=== PATIENT | female | born 1985 | race Caucasian/White ===

== ENCOUNTER 2022-10-26 11:08 | Outpatient (REF) | payer BC, SELFPAY ==
[2022-10-26 15:58] LABS: HCT 40.6 % (36.0-46.0); MCH 32.7 pg (27.0-33.0); MCHC 34.5 % (32.0-36.0); MCV 95 fL (80-95); MPV 11.9 fL (8.0-11.0); Platelet Count 370 10^3/uL (130-400); RBC 4.28 10^6/uL (3.93-5.22); RDW 12.4 % (11.7-14.6); RDW-SD 43.1 fL; WBC 7.23 10^3/uL (4.4-10.8)
[2022-10-26 17:38] LABS: Iron 68 ug/dL (50-170)
[2022-10-26 23:17] LABS: Estradiol 35 pg/mL (See Note); Progesterone 0.3 ng/mL (See Table)
[2022-10-27 09:57] LABS: FSH 8.8 mIU/mL (See Note); LH 6.9 mIU/mL (See Note)
[2022-10-27 10:38] LABS: TSH (W/Ref FT4) 1.05 uIU/mL (0.36-3.74)
== END 2022-10-26 11:09 | disposition home or self-care (01) ==
LOC: NCHCN 11:08
PROVIDERS: PCP Family Medicine; Visit Provider Family Medicine
DX: N92.0 Excessive and frequent menstruation with regular cycle (principal)
CPT/HCPCS: 85027; 82670; 83001; 83002; 83540; 84144; 84443

== ENCOUNTER 2023-04-03 13:22 | Outpatient (REF) | payer BC, SELFPAY ==
--- NOTE | 2023-04-03 14:30 | PAPFT_PTH ---
PATIENT: Liv Crow LOC: [facility]#:[id number] AGE/SX: 38/F ROOM: RE04/03/[address]: Neetu Colon : 1985 BED: DIS: 04/03/2023 SPEC #: [id number] RECD: 04/04/23 13:26 STATUS: TACOS REJamaal #: [id number] RITCHIE: 04/03/23 14:[address]: Neetu Colon DEPT: [facility] Cytology RECD BY: Micaela Morgan Tissues: 1 - CX/ENDOCX FOR PAP SMEARS Procedures: PAP THIN PREP/UVM Screening HPV DNA PROBE Comments: [id number]
== END 2023-04-03 13:23 | disposition home or self-care (01) ==
LOC: NCHCN 13:22
PROVIDERS: PCP Family Medicine; Visit Provider Family Medicine
DX: Z12.4 Encounter for screening for malignant neoplasm of cervix (principal); Z11.51 Encounter for screening for human papillomavirus (HPV); Z00.00 Encounter for general adult medical examination without abnormal findings
CPT/HCPCS: 88142; 87624

== ENCOUNTER 2024-04-10 10:36 | Outpatient (REF) | payer BC, SELFPAY ==
[2024-04-10 15:23] LABS: ALT 22 U/L (14-59); AST 18 U/L (15-37); Albumin 4.2 g/dL (3.4-5.0); Alkaline Phosphatase 63 U/L (46-116); Anion Gap 7.4 mmol/L (3-11); BUN 9 mg/dL (7-18); Bilirubin, Total 0.37 mg/dL (0.2-1.0); CO2 29.6 mmol/L (21.0-32.0); CREATININE 0.9 mg/dL (0.55-1.02); Calcium 9.7 mg/dL (8.5-10.1); Calculated LDL 105 mg/dL (<100); Chloride 108 mmol/L (98-107); Cholesterol 199 mg/dL (<200); Estimated GFR 82.88 (mL/min/1.73m2); Glucose 68 mg/dL (74-106); HDL Cholesterol 83 mg/dL (40-60); Potassium 5.2 mmol/L (3.5-5.1); Sodium 145 mmol/L (136-145); Triglyceride 56 mg/dL (<150)
== END 2024-04-10 10:37 | disposition home or self-care (01) ==
LOC: NCHCN 10:36
PROVIDERS: PCP Family Medicine; Visit Provider Family Medicine
DX: Z00.00 Encounter for general adult medical examination without abnormal findings (principal)
CPT/HCPCS: 80053; 80061

== ENCOUNTER 2024-07-19 15:15 | Outpatient (REF) | payer BC, SELFPAY ==
[2024-07-19 15:02] LABS: Abs Immature Grans 0.04 10^3/uL (0.0-0.06); Absolute Basophil Count 0.07 10^3/uL (0.0-0.2); Absolute Eosinophil Count 0.06 10^3/uL (0.0-0.7); Absolute Lymphocyte Count 1.43 10^3/uL (1.2-3.4); Absolute Neutrophil Count 4.35 10^3/uL (1.2-6.7); Basophils % 1.1 %; Eosinophils % 0.9 %; HCT 41.9 % (36.0-46.0); HGB 13.7 g/dL (11.2-15.7); Immature Grans % 0.6 %; Lymphocytes % 21.8 %; MCH 31.3 pg (27.0-33.0); MCHC 32.7 % (32.0-36.0); MCV 96 fL (80-95); Monocytes % 9.2 %; Neutrophils % 66.4 %; Platelet Count 330 10^3/uL (130-400); RBC 4.38 10^6/uL (3.93-5.22); RDW 12.3 % (11.7-14.6); RDW-SD 43.6 fL; WBC 6.55 10^3/uL (4.4-10.8)
[2024-07-19 15:44] LABS: ALT 18 U/L (14-59); AST 17 U/L (15-37); Albumin 4.2 g/dL (3.4-5.0); Alkaline Phosphatase 58 U/L (46-116); Anion Gap 6.6 mmol/L (3-11); BUN 12 mg/dL (7-18); Bilirubin, Total 0.37 mg/dL (0.2-1.0); CO2 29.4 mmol/L (21.0-32.0); CREATININE 0.9 mg/dL (0.55-1.02); Calcium 9.3 mg/dL (8.5-10.1); Chloride 105 mmol/L (98-107); Estimated GFR 82.88 (mL/min/1.73m2); Folate 17.2 ng/mL (8.6-20.0); Glucose 72 mg/dL (74-106); Potassium 4.6 mmol/L (3.5-5.1); Sodium 141 mmol/L (136-145); TSH 1.93 uIU/mL (0.36-3.74); Total Protein 6.9 g/dL (6.4-8.2); Vitamin B12 286 pg/mL (193-986)
== END 2024-07-19 15:16 | disposition home or self-care (01) ==
LOC: NCHCN 15:15
PROVIDERS: PCP Family Medicine; Visit Provider Family Medicine
DX: R41.0 Disorientation, unspecified (principal)
CPT/HCPCS: 80053; 82607; 82746; 84443; 85025

== ENCOUNTER 2024-08-21 02:15 | Outpatient (CLI) | payer BC, SELFPAY ==
[2024-08-21] MEDS: Gadoterate meglumine 20 ML VIAL 14 ML IVP (10:00)
[2024-08-21] MEDS: Normal Saline Flush 10 ML SYR IVP (10:01)
--- NOTE | 2024-08-21 10:30 | DI.MRI_ITS ---
Exam(s) MR BRAIN WO/W EXAM: MR BRAIN WO/W CLINICAL HISTORY: Disorientation, unspecified, R41.0. TECHNIQUE: Multiplanar multisequence MRI of the brain was performed. CONTRAST MATERIAL: IV Contrast: 14 ML of Dotarem contrast administered. COMPARISON: MR MRI BRAIN WWO from 04/01/2020 FINDINGS: VENTRICLES AND EXTRA AXIAL SPACES: Normal in size and morphology for the patient's age. HEMORRHAGE: None. CEREBRAL PARENCHYMA: Single elongated high signal lesion in the left frontal parietal region just abo ve the lateral ventricle. It measures 15 x 7 millimeters. There is peripheral enhancement and some small associated edema. Has the typical appearance of a Ferguson's finger. No restricted diffusion. No additional lesions. BRAINSTEM/CEREBELLUM: Normal. VISUALIZED PARANASAL SINUSES/MASTOIDS: Clear. Orbits: Unremarkable. Pituitary: Not enlarged. Vasculature: Normal flow voids. IMPRESSION: Single elongated peripheral enhancing periventricular lesion in the left frontal parietal region is s uspicious for a multiple sclerosis plaque. There is associated enhancement consistent with an active lesion. DATA REPOSITORY:
== END 2024-08-21 02:35 ==
LOC: DI 02:15
PROVIDERS: PCP Family Medicine; Visit Provider Family Medicine
DX: R41.0 Disorientation, unspecified (principal)
CPT/HCPCS: 70553

== ENCOUNTER 2024-10-09 01:48 | Outpatient (CLI) | payer BC, SELFPAY ==
--- NOTE | 2024-10-09 | DI.MAMMO_ITS ---
Exam(s) MAMMO SCREENING EXAM: MAMMO SCREENING CLINICAL HISTORY: Baseline screening, Z00.00-encounter for general adult medical examination. TECHNIQUE: Bilateral full field digital CC and MLO mammographic images were obtained with 3D tomosyn thesis and utilizing computer aided detection (CAD). COMPARISON: None. This is a baseline mammogram on this 39-year-old FINDINGS: Fibroglandular tissue pattern very dense this decreasing the sensitivity of the mammogram for finding hidden underlying lesions. There are no CAD designations. There are no obvious spiculated masses nor malignant appearing microcalcification groups. There is no significant architectural distortion nor skin thickening-retraction. IMPRESSION: Dense bilateral fibroglandular tissue. No obvious radiographic evidence of malignancy. BI-RADS Category 1 - Negative Breast Density - Category C - Heterogeneously dense Breast density Category C or D implies that the patient has dense breast tissue. Dense breast tissue can make it harder to find cancer on a mammogram. Dense breast tissue is also associated with an incr eased risk of breast cancer. This information about the result of the mammogram report was provided to the patient to raise their awareness. Use this report when you speak with the patient about their risks for breast cancer, which includes their family history. At that time, you may recommend additional screening tests (Ultrasoun d or MRI) as these tests may add significant information. A negative radiographic report should not delay biopsy if a dominant or clinically suspicious mass is present. Up to ten percent of cancers are not identified on mammography. A negative report may reinforce clinical impression. Adenosis and dense breasts may obscure an underlying neoplasm. False positive reports average 6 to 10%. Patient will receive a letter notifying them of these results.
== END 2024-10-09 02:08 ==
LOC: DI 01:50
PROVIDERS: PCP Family Medicine; Visit Provider Family Medicine
DX: Z00.00 Encounter for general adult medical examination without abnormal findings (principal); Z12.31 Encounter for screening mammogram for malignant neoplasm of breast; R92.333 Mammographic heterogeneous density, bilateral breasts
CPT/HCPCS: 77063; 77067